=== PATIENT | male | born 1980 | race African-American/Black ===

== ENCOUNTER 2020-01-24 21:48 | Emergency (ER) | payer OTHER ==
[~2020-01-24] VITALS: Ht 170.2 cm; Wt 86.0 kg
[2020-01-24] MEDS ORDERED: KETOROLAC 60MG/2ML VIAL IM STA (23:50)
[2020-01-25 00:05] VITALS: BP 137/90
== END 2020-01-25 01:05 | disposition home or self-care (01) ==
LOC: ER 21:48
DX: K02.9 Dental caries, unspecified (principal)
CPT/HCPCS: 96372; 99283; J1885